=== PATIENT | male | born 1995 | race African-American/Black ===

== ENCOUNTER 2022-05-17 17:56 | Emergency (ER) | payer BC, SELFPAY ==
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
[2022-05-17 18:12] VITALS: BP 152/109; PULSE 85; RESP 17; TEMP 36.7; O2SAT 100; BMI 24.4
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
[2022-05-17 19:15] VITALS: BP 127/81; PULSE 79; RESP 17; TEMP 36.8; O2SAT 98
== END 2022-05-17 19:28 ==
PROVIDERS: Emergency Provider Student in an Organized Health Care Education/Training Program
DX: S61.411A Laceration without foreign body of right hand, initial encounter (principal); X99.1XXA Assault by knife, initial encounter; Z23 Encounter for immunization
CPT/HCPCS: 12004; 73110; 73130; 90471; 90715; 99284